=== PATIENT | female | born 1975 | race Caucasian/White ===

== ENCOUNTER 2018-10-29 13:10 | Emergency (ER) | payer OTHER ==
[~2018-10-29] VITALS: Ht 167.6 cm; Wt 76.2 kg
--- NOTE | 2018-10-29 13:56 | EKG ---
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
[2018-10-29 13:57] LABS: BASO # 0.1 x10^3/uL (0.0-0.2); BASO % 1 % (0-3); EOS % 0 % (0-3); HEMATOCRIT 40.5 % (36.0-47.0); HEMOGLOBIN 13.6 g/dL (12.0-15.5); LYMPH # 1.4 x10^3/uL (1.0-4.8); LYMPH % 11 % (24-48); MEAN CORPUSCULAR HEMOGLOBIN 30 pg (25-35); MEAN CORPUSCULAR HGB CONC 34 g/dL (31-37); MEAN CORPUSCULAR VOLUME 88 fL (79-100); MONO # 0.8 x10^3/uL (0.0-1.1); MONO % 6 % (0-9); NEUT # 10.7 x10^3uL (1.8-7.7); NEUT % 82 % (31-73); PLATELET COUNT 443 x10^3/uL (140-400); RED BLOOD COUNT 4.58 x10^6/uL (3.50-5.40); RED CELL DISTRIBUTION WIDTH 13.8 % (11.5-14.5)
[2018-10-29] MEDS ORDERED: ONDANSETRON PF 4 MG/2 ML VIAL. IV ONE (14:00)
[2018-10-29] MEDS ORDERED: IV NORMAL SALINE 1,000ML 1,000 ML IV ONE (14:00)
[2018-10-29 14:08] LABS: CLARITY,URINE CLOUDY; COLOR,URINE AMBER; GLUCOSE,URINE NEG (NEG)
[2018-10-29 14:09] LABS: BACTERIA,URINE FEW /HPF (0-FEW); BILIRUBIN,URINE MOD (NEG); NITRITE,URINE NEG (NEG); SQUAMOUS EPITHELIAL CELL,UR MANY /LPF; UROBILINOGEN,URINE 2 mg/dL (0.2 mg/dL); WBC,URINE OCC /HPF (0-4)
[2018-10-29 14:13] LABS: ALBUMIN 3.5 g/dL (3.4-5.0); ALBUMIN/GLOBULIN RATIO 0.8 (1.0-1.7); CALCIUM 9.4 mg/dL (8.5-10.1); CREATININE 0.9 mg/dL (0.6-1.0); GFR 68.7; POTASSIUM 3.5 mmol/L (3.5-5.1); TOTAL BILIRUBIN 1.8 mg/dL (0.2-1.0); TOTAL PROTEIN 8.1 g/dL (6.4-8.2)
[2018-10-29] MEDS ORDERED: IOHEXOL 300 MG/ML 75 ML VIAL. IV ONE (14:15)
--- NOTE | 2018-10-29 15:22 | RAD ---
Examination: CT ABD PELV W/ IV CONTRST ONLY History: Right lower quadrant pain, nausea and vomiting Comparison/Correlation: None Findings: Axial images of the abdomen and pelvis were obtained following IV contrast. Sagittal and coronal reformatted images were provided. Visualized lung bases are clear. Small hiatal hernia is present. Cholecystectomy noted. Liver is unremarkable. Spleen, pancreas, adrenal glands, and kidneys are unremarkable. Appendix is distended with fluid. Small appendicolith is suggested proximally within the appendix. There may be a very small droplet or 2 of gas about the distal appendix. Surrounding inflammatory stranding is noted about the appendix within the right iliac fossa. Terminal ileum is unremarkable. Minimal fluid within the right iliac fossa noted. Minimal pelvic fluid along the right pelvic sidewall noted. Bilateral adnexal follicles are present. Mildly prominent right adnexal region vasculature is noted. Minimal fluid about the right axis adnexal region may be physiologic or reactive. Uterus is normal. Urinary bladder is unremarkable. No extraluminal gas. No bowel obstruction. Mild L3-4 concentric disc bulge. Slight L4-5 interspace narrowing. Mild concentric disc bulge at L5-S1. Impression: Acute appendicitis. No abscess. Significant surrounding inflammatory changes noted however. Minimal reactive fluid noted. A droplet or 2 of gas about the distal appendix raises question of minimal perforation. On 10/29/2018 at 3:19 PM, results discussed with the referring emergency room physician. PQRS Compliance Statement: One or more of the following individualized dose reduction techniques were utilized for this examination: 1. Automated exposure control 2. Adjustment of the mA and/or kV according to patient size 3. Use of iterative reconstruction technique Electronically signed by: Vik Burgos MD (10/29/2018 3:19 PM) [facility]
[2018-10-29] MEDS ORDERED: PIPERACILLIN/TAZOBACTAM 3.375 GM VIAL IV ONE (15:33)
[2018-10-29] MEDS ORDERED: IV NORMAL SALINE 50ML 50 ML ONE (15:33)
--- NOTE | 2018-10-29 15:34 | PHYS DOC ---
Past History Past Medical History: No Pertinent History Past Surgical History: Cholecystectomy Alcohol Use: Occasionally Drug Use: None Adult General Chief Complaint Chief Complaint: ABDOMINAL PAIN HPI HPI Patient is a 43 year old female who presents with a 4 day history of abdominal pain. She reports onset of pain starting (10/25) and was diffuse, with the left side and periumbilical region hurting the worse. She started feeling very nauseous and lightheaded, causing her to feint. After this incident she started having multiple episodes of emesis, with the last episode occurring Monday. Her pain has become more localized since monday, and now it is predominantly in the RLQ. She rates it a 7/10 and describes it as a pulsating pain that changes from sharp to dull. Last night she had a temperature of 100.7 degrees F. Her only abdominal surgery was a cholecystectomy in December of 2015 or 2016. She denies any sick contacts, diarrhea, blood in her stool, or chest pain. She reported having a "small" bowel movement earlier this morning. Review of Systems Review of Systems Constitutional:Admits to feeling feverish. Denies chills. Eyes: Denies change in visual acuity, redness, or eye pain HENT: Denies nasal congestion or sore throat Respiratory: Denies cough. Admits to pain-induced shortness of breath Cardiovascular: No additional information not addressed in HPI GI: Denies, bloody stools or diarrhea. Admits to RLQ abdominal pain, nausea and vomiting. : Admits dysuria Musculoskeletal: Denies back pain or joint pain Integument: Denies rash or skin lesions Neurologic: Denies focal weakness or sensory changes. Admits to headache All other systems were reviewed and found to be within normal limits, except as documented in this note. Current Medications Current Medications Current Medications Medications (Trade) Dose Ordered Sig/Logan Start Time Stop Time Status Last Admin Dose Admin Fentanyl Citrate (Fentanyl 2ml Vial) 50 mcg 1X ONCE 10/29/18 14:00 10/29/18 14:09 DC 10/29/18 14:15 50 MCG Iohexol (Omnipaque 300 Mg/ml) 75 ml 1X ONCE 10/29/18 14:15 10/29/18 14:16 DC 10/29/18 14:52 75 ML Ondansetron HCl (Zofran) 4 mg 1X ONCE 10/29/18 14:00 10/29/18 14:09 DC 10/29/18 14:13 4 MG Sodium Chloride 1,000 ml @ 1,000 mls/hr 1X ONCE 10/29/18 14:00 10/29/18 14:59 DC 10/29/18 14:11 1,000 MLS/HR Allergies Allergies Allergies Coded Allergies Type Severity Reaction Last Updated Verified No Known Drug Allergies 10/29/18 No Physical Exam Physical Exam Constitutional: Well developed, well nourished, pt in mild distress d/t pain. HENT: Normocephalic, atraumatic, bilateral external ears normal, oropharynx moist, no oral exudates, nose normal. Eyes: PERRLA, EOMI, conjunctiva normal, no discharge. Neck: Normal range of motion, no tenderness, supple, no stridor. Cardiovascular:Heart rate regular rhythm, no murmur Lungs & Thorax: Bilateral breath sounds clear to auscultation Abdomen: Bowel sounds normal, soft, no masses, no pulsatile masses. TTP in RLQ, positive Psoas sign on right. Skin: Warm, dry, no erythema, no rash. Back: No tenderness, slight CVA tenderness. Extremities: No tenderness, no cyanosis, no clubbing, ROM intact, no edema. Neurologic: Alert and oriented X 3, normal motor function, normal sensory function, no focal deficits noted. Current Patient Data Vital Signs Vital Signs Date Time Temp Pulse Resp B/P (MAP) Pulse Ox O2 Delivery O2 Flow Rate FiO2 10/29/18 15:00 90 20 120/66 (84) 96 Room Air 10/29/18 13:15 98.5 Lab Results Laboratory Tests Test 10/29/18 13:20 10/29/18 13:35 10/29/18 13:53 Urine Collection Type Unknown Urine Color [place]ina Urine Clarity Cloudy Urine pH 5.5 Urine Specific [place] 1.025 Urine Protein 100 mg/dl (NEG-TRACE) Urine Glucose (UA) Neg mg/dL (NEG) Urine Ketones (Stick) >=160 mg/dL (NEG) Urine Blood Trace (NEG) Urine Nitrite Neg (NEG) Urine Bilirubin Mod (NEG) Urine Urobilinogen Dipstick 2 mg/dL (0.2 mg/dL) Urine Leukocyte Esterase Neg (NEG) Urine RBC 1-2 /HPF (0-2) Urine WBC Occ /HPF (0-4) Urine Squamous Epithelial Cells Many /LPF Urine Bacteria Few /HPF (0-FEW) Urine Mucus Mod /LPF White Blood Count 13.0 x10^3/uL (4.0-11.0) H Red Blood Count 4.58 x10^6/uL (3.50-5.40) Hemoglobin 13.6 g/dL (12.0-15.5) Hematocrit 40.5 % (36.0-47.0) Mean Corpuscular Volume 88 fL (79-100) Mean Corpuscular Hemoglobin 30 pg (25-35) Mean Corpuscular Hemoglobin Concent 34 g/dL (31-37) Red Cell Distribution Width 13.8 % (11.5-14.5) Platelet Count 443 x10^3/uL (140-400) H Neutrophils (%) (Auto) 82 % (31-73) H Lymphocytes (%) (Auto) 11 % (24-48) L Monocytes (%) (Auto) 6 % (0-9) Eosinophils (%) (Auto) 0 % (0-3) Basophils (%) (Auto) 1 % (0-3) Neutrophils # (Auto) 10.7 x10^3uL (1.8-7.7) H Lymphocytes # (Auto) 1.4 x10^3/uL (1.0-4.8) Monocytes # (Auto) 0.8 x10^3/uL (0.0-1.1) Eosinophils # (Auto) 0.0 x10^3/uL (0.0-0.7) Basophils # (Auto) 0.1 x10^3/uL (0.0-0.2) Sodium Level 136 mmol/L (136-145) Potassium Level 3.5 mmol/L (3.5-5.1) Chloride Level 100 mmol/L (98-107) Carbon Dioxide Level 25 mmol/L (21-32) Anion Gap 11 (6-14) Blood Urea Nitrogen 8 mg/dL (7-20) Creatinine 0.9 mg/dL (0.6-1.0) Estimated GFR (Cockcroft-Gault) 68.7 BUN/Creatinine Ratio 9 (6-20) Glucose Level 108 mg/dL (70-99) H Calcium Level 9.4 mg/dL (8.5-10.1) Total Bilirubin 1.8 mg/dL (0.2-1.0) H Aspartate Amino Transferase (AST) 44 U/L (15-37) H Alanine Aminotransferase (ALT) 98 U/L (14-59) H Alkaline Phosphatase 126 U/L (46-116) H Total Protein 8.1 g/dL (6.4-8.2) Albumin 3.5 g/dL (3.4-5.0) Albumin/Globulin Ratio 0.8 (1.0-1.7) L Lipase 68 U/L (73-393) L POC Urine HCG, Qualitative hcg negative (Negative) EKG EKG Normal sinus rhythm rate 96 no acute ischemic changes noted interpreted by me time of encounter[] Radiology/Procedures Radiology/Procedures [] Impressions: Appendix is distended with fluid. Small appendicolith is suggested proximally within the appendix. There may be a very small droplet or 2 of gas about the distal appendix. Surrounding inflammatory stranding is noted about the appendix within the right iliac fossa. Terminal ileum is unremarkable. Minimal fluid within the right iliac fossa noted. Minimal pelvic fluid along the right pelvic sidewall noted. Bilateral adnexal follicles are present. Mildly prominent right adnexal region vasculature is noted. Minimal fluid about the right axis adnexal region may be physiologic or reactive. Course & Med Decision Making Course & Med Decision Making Pertinent Labs and Imaging studies reviewed. (See chart for details) 43 year old female presenting with 4 day history of diffuse abdominal pain with n/v that is now localized to the RLQ. Patient has had one abdominal surgery, a cholecystectomy, 2.5-3.5 years ago. She was TTP in the RLQ and had a positive psoas sign. Her history and physical make appendicitis a likely diagnosis. A CBC, CMP, EKG, Lipase, UA, and urine test were ordered to rule in infection/inflammation and rule out other possible etiologies causing her pain (pancreatitis, UTI, ectopic). A CT Abd/pelvis w/ contrast was ordered to confirm a diagnosis of appendicitis. i d/w [facility] at [facility] at 330 pm, asks transfer to [facility]. will get accepting hospitalist then transfer pt Maggie Disclaimer Dragon Disclaimer This electronic medical record was generated, in whole or in part, using a voice recognition dictation system. Departure Departure: Impression: Primary Impression: Appendicitis Disposition: XF [facility] HOSP Condition: STABLE Referrals: SOCORRO CORTES MD (PCP) CHEN MANE MD Oct 29, 2018 15:34
[2018-10-29] MEDS ORDERED: PIPERACILLIN/TAZOBACTAM 3.375 GM in IV NORMAL SALINE 50ML 50 ML IV ONE (15:45)
[2018-10-29] MEDS ORDERED: MORPHINE SULFATE 4 MG/ML DISP.SYRIN. IV ONE (15:45)
[2018-10-29 15:58] VITALS: BP 120/65
== END 2018-10-29 16:45 | disposition short-term general hospital (02) ==
LOC: ER 13:10
DX: K37 Unspecified appendicitis (principal); R42 Dizziness and giddiness; R11.2 Nausea with vomiting, unspecified; Z90.49 Acquired absence of other specified parts of digestive tract
CPT/HCPCS: 36415; 74177; 80053; 81001; 81025; 83690; 85025; 93005; 96361; 96365; 96375; 99285; J2270; J2405; J2543; J3010; Q9967; J7030